=== PATIENT | male | born 1950 | race Caucasian/White ===

== ENCOUNTER 2017-05-10 22:23 | Emergency (ER) | payer OTHER ==
[2011-02-23 00:40] VITALS: BMI 25.9
[2017-05-10 22:47] LABS: BASOPHILS 1.1 % (0-2); EOSINOPHILS 8.3 % (0-7); HEMOGLOBIN 13.9 g/dL (13.5-17.5); IMMATURE GRANULOCYTES 0.2 % (0-5); LYMPHOCYTES 25.9 % (15-50); MCH 32.3 pg (26.0-34.0); MCHC 33.1 g/dL (31.0-37.0); MCV 97.4 fL (80.0-100.0); MEAN PLATELET VOLUME 9.6 fL (7.4-10.4); MONOCYTES 10.5 % (2-11); RBC 4.31 10x6/uL (4.20-6.10); RDW 12.9 % (11.5-14.5); WBC 5.6 10x3/uL (4.8-10.8)
[2017-05-10 22:50] LABS: PLATELET COUNT 197 10x3/uL (130-400)
[2017-05-10 23:03] LABS: ALBUMIN 3.7 g/dL (3.4-5.0); ALKALINE PHOSPHATASE 71 U/L (46-116); ALT (SGPT) 21 U/L (10-68); BILIRUBIN - TOTAL 0.23 mg/dL (0.2-1.3); CALC OSMOLALITY 282 mosm/kg (275-300); CALCIUM 9.5 mg/dL (8.5-10.1); CARBON DIOXIDE 31.8 mmol/L (21.0-32.0); CHLORIDE - SERUM 104 mmol/L (98-107); CREATININE - SERUM 1.1 mg/dL (0.6-1.3); GLUCOSE 131 mg/dL (74-106); PROTEIN - SERUM 6.6 g/dL (6.4-8.2); SODIUM 141 mmol/L (136-145); UREA NITROGEN 13 mg/dL (7-18); eGFR NON AFRICAN AMERICAN 71 mL/min (90-120)
[2017-05-10 23:12] LABS: CKMB 2.2 U/L (0.0-3.6); CREATINE KINASE 168 UL (21-232)
[2017-05-10 23:13] LABS: TROPONIN-I < 0.017 ng/mL (0.000-0.060)
== END 2017-05-11 03:59 | disposition home or self-care (01) ==
LOC: D.ER 22:23
PROVIDERS: Emergency Medicine Emergency Medical Services
DX: R07.89 Other chest pain (principal); Z95.0 Presence of cardiac pacemaker; I10 Essential (primary) hypertension